=== PATIENT | female | born 1960 | race Hispanic/Latino ===

== ENCOUNTER 2023-06-11 12:18 | Observation (INO) | payer OTHER ==
--- OUTSIDE RECORDS SUMMARY | 2023-06-11 12:21 | XMS REPORT | Continuity of Care Document ---
:1960 Author Organization [facility] t Address [address] [facility] [address] [place] [id number] Care Team Providers Name Role Phone JERMAN Attending Clinician Unavailable JERMAN Admitting Clinician Unavailable Payers Payer Name Policy Type Policy Number Effective Date Expiration Date S damian MEDICARE B-TX: [id number] 2008 [employer] 00:00:00 [employer] [id number] 2016 [facility] (MEDICAID 00:00:00 HMO) Problems This patient has no known problems. Allergies, Adverse Reactions, Alerts This patient has no known allergies or adverse reactions. Medications This patient has no known medications. Procedures This patient has no known procedures. Encounters Start End Encounter Admission Attending Care Care Encounter Source Date/Time Date/Time Type Type Clinicians Facility Department ID 2022-04-26 2022-04-26 Outpatient [facility] [place] [phone] Lisa 03:03:00 03:03:00 [facility] [id number] [facility] l [facility] Results This patient has no known results.
[2023-06-11 12:40] LABS: Absolute Lymphocytes (CBC) 1.4 K/uL (0.7-4.9); Hematocrit 41.2 % (36.0-45.0); Lymphocytes % 22.3 % (15.3-44.8); MCV 89.8 fL (80-100); Platelets 181 thou/uL (152-406); RBC Red Blood Cell Count 4.58 M/uL (3.86-4.86)
[2023-06-11] MEDS ORDERED: FENTANYL CITR 100 MCG/2 ML ONE (12:41)
[2023-06-11] MEDS ORDERED: FAMOTIDINE 20 MG/2 ML VIAL IV ONE (12:41)
[2023-06-11 12:42] LABS: Protime INR 1.02
--- NOTE | 2023-06-11 12:47 | RAD REPORT ---
EXAM DESCRIPTION: CT - Head Brain Wo Cont - 06/11/2023 12:38 pm CLINICAL HISTORY: DIZZINESS Headache, drowsiness, dizziness COMPARISON: Head Brain Wo Cont dated 10/14/2016; HEAD BRAIN W O CONTRAST dated 02/28/2015 TECHNIQUE: All CT scans are performed using dose optimization technique as appropriate and may inclu de automated exposure control or mA/KV adjustment according to patient size. FINDINGS: No intracranial hemorrhage, hydrocephalus or extra-axial fluid collection.Calcified right- sided meningioma appears stable since prior imaging.No areas of brain edema or evidence of midline sh ift. The paranasal sinuses and mastoids are clear. The calvarium is intact. IMPRESSION: No acute intracranial abnormality.
[2023-06-11 13:01] LABS: Albumin 3.6 g/dL (3.4-5.0); Bilirubin Direct 0.1 mg/dL (0-0.2); Bilirubin Indirect, Calculated 0.5 mg/dL (0.2-0.8); Bilirubin Total 0.6 mg/dL (0.2-1.0); Magnesium 2.2 mg/dL (1.6-2.4); Potassium 3.1 mEq/L (3.5-5.1); Troponin High Sensitivity 7.8 pg/mL (<58.9)
[2023-06-11] MEDS ORDERED: NA CHLORIDE 0.9% 1,000 ML ONE (13:25)
[2023-06-11] MEDS ORDERED: POTASSIUM 25 MEQ EFFERV TAB ONE (13:25)
[2023-06-11] MEDS ORDERED: PROMETHAZINE INJ 25 MG/ML AMP ONE (13:47)
--- NOTE | 2023-06-11 13:54 | RAD REPORT ---
EXAM DESCRIPTION: RAD - Chest Single View - 06/11/2023 12:51 pm CLINICAL HISTORY: ABDOMINAL DISTENTION Chest pain. COMPARISON: Chest Pa And Lat (2 Views) dated 10/17/2016; Chest Single View dated 10/15/2016; Chest S anoop View dated 10/14/2016; CHEST SINGLE VIEW dated 02/28/2015 FINDINGS: Portable technique limits examination quality. The lungs are grossly clear. The heart is normal in size. No displaced fractures.Cervical hardware pl ate. IMPRESSION: No acute intrathoracic process suspected.
--- NOTE | 2023-06-11 14:11 | RAD REPORT ---
EXAM DESCRIPTION: CT - Chest Abd Pelvis Wo Con - 06/11/2023 1:53 pm CLINICAL HISTORY: Chest and abdomen pain. Chest pain;Pain;SOB COMPARISON: No comparisons TECHNIQUE: A limited noncontrast study was performed. All CT scans are performed using dose optimization technique as appropriate and may include automated exposure control or mA/KV adjustment according to patient size. FINDINGS: Mild linear atelectasis in the posterior left lung base. The lungs are otherwise clear.No pleural or pericardial effusion.No intrathoracic adenopathy.Cholecystectomy clips. The liver, spleen, pancreas, adrenal glands and kidneys are within normal limits. No bowel obstruction, free air, free fluid or abscess. Normal appendix. No pathologic lymphadenopath y in the abdomen or pelvis. No worrisome osseous finding. IMPRESSION: No acute abnormality is seen.
--- NOTE | 2023-06-11 14:29 | EDPHYS ---
Physician Documentation [facility] Name: Geeta Smith Age: 62 yrs Sex: Female : 1960 Arrival Date: 06/11/2023 Time: 12:18 Bed 2 Private MD: ED Physician Trell Crockett HPI: 06/11 12:54 This 62 yrs old Female presents to ER via EMS with complaints of Abdominal sb4 Pain. 12:54 The patient presents with abdominal pain in the epigastric area. Onset: The sb4 symptoms/episode began/occurred last night, and became worse just prior to arrival. The symptoms do not radiate. Associated signs and symptoms: Pertinent positives: chest pain, headache, nausea, palpitations, Dizziness. The symptoms are described as sharp. Modifying factors: The symptoms are alleviated by nothing, the symptoms are aggravated by alcohol. Severity of pain: in the emergency department the pain is a 10 / 10. The patient has not experienced similar symptoms in the past. The patient has not recently seen a physician. Historical: - Allergies: 12:24 IVP CONTRAST; aa5 12:24 Iodine; aa5 - PMHx: 12:24 CHF; Diabetes - NIDDM; graves disease; Hypertension; TUMOR IN BRAIN FOUND 5 YRS AGO - aa5 NO TREATMENT; Hypothyroidism; Arthritis; - Immunization history:: Adult Immunizations up to date. - Social history:: Smoking status: unknown. ROS: 12:54 Eyes: Negative for injury, pain, redness, and discharge, ENT: Negative for injury, sb4 pain, and discharge, Respiratory: Negative for shortness of breath, cough, wheezing, and pleuritic chest pain, Skin: Negative for injury, rash, and discoloration. 12:54 Constitutional: Negative for fever, chills, and weight loss. 12:54 Cardiovascular: Positive for chest pain. 12:54 Cardiovascular: Positive for palpitations. 12:54 Abdomen/GI: Positive for abdominal pain, nausea. 12:54 MS/extremity: Positive for pain, of the left leg. 12:54 Neuro: Positive for dizziness, headache. 12:54 All other systems are negative. Exam: 12:54 Head/Face: Normocephalic, atraumatic. Eyes: Extra-ocular motions intact. Periorbital sb4 areas with no swelling, redness, or edema. ENT: Mucous membranes moist. Cardiovascular: Regular rate and rhythm with a normal S1 and S2. Respiratory: Lungs have equal breath sounds bilaterally, clear to auscultation and percussion. No rales, rhonchi or wheezes noted. No increased work of breathing, no retractions or nasal flaring. Abdomen/GI: Soft, non-tender, no distension. Skin: Warm, dry with normal turgor. Normal color with no rashes, no lesions, and no evidence of cellulitis. MS/ Extremity: Pulses equal, no cyanosis. Neurovascular intact. Full, normal range of motion. Neuro: Awake and alert, GCS 15, oriented to person, place, time, and situation. Cranial nerves II-XII grossly intact. Motor strength 5/5 in all extremities. Sensory grossly intact. Cerebellar exam normal. Normal gait. 12:54 Constitutional: The patient appears alert, awake, uncomfortable. Vital Signs: 12:21 BP 159 / 68; Pulse 63; Resp 20 S; Temp 98(TE); Pulse Ox 99% on R/A; aa5 13:15 BP 167 / 84; Pulse 64; Resp 14 S; Pulse Ox 94% on R/A; aa5 14:00 BP 158 / 100; Pulse 68; Resp 16 S; Pulse Ox 100% on 2 lpm NC; aa5 15:00 BP 171 / 83; Pulse 57; Resp 18 S; Pulse Ox 100% on 2 lpm NC; aa5 15:31 BP 158 / 79; Pulse 58; Resp 16 S; Temp 97.9(TE); Pulse Ox 99% on 2 lpm NC; aa5 16:15 BP 130 / 72; Pulse 62; Resp 15; Pulse Ox 98% on 2 lpm NC; hb 19:15 BP 168 / 98; Pulse 56; Resp 15; Pulse Ox 100% ; vc1 20:41 BP 144 / 86; Pulse 65; Resp 16; Temp 98; Pulse Ox 100% on R/A; rv [place] Coma Score: 20:41 Eye Response: spontaneous(4). Motor Response: obeys commands(6). Verbal Response: rv oriented(5). Total: 15. MDM: 12:21 Patient medically screened. amy 12:54 Differential diagnosis: AAA, acute coronary syndrome, gastritis, myocardia ischemia or sb4 infarction, non-specific abd pain, pancreatitis, Peptic Ulcer Disease. 14:27 Data reviewed: vital signs, nurses notes, lab test result(s), EKG, radiologic studies, sb4 and as a result, I will admit patient. Consideration of Admission/Observation Patient was admitted/placed on observation. Management of patient was discussed with the following: Hospitalist: DANIELLE Hanson. Historians other than the Patient: Daughter/Son: son. Care significantly affected by the following chronic conditions: Diabetes, Hypertension, Congestive Heart Failure. Scoring Tools HEART Score: History: ECG: Age: Risk Factors: > or = 3 Risk factors for atherosclerotic disease (2), Troponin: Total Score = 5. Counseling: I had a detailed discussion with the patient and/or guardian regarding the historical points, exam findings, and any diagnostic results supporting the discharge/admit diagnosis, the presence of at least one elevated blood pressure reading (>120/80) during this emergency department visit, lab results, radiology results, the need for further work-up and treatment in the hospital. 06/11 12:25 Order name: Basic Metabolic Panel; Complete Time: 13:06 amy 06/11 12:25 Order name: CBC with Diff; Complete Time: 12:46 amy 06/11 12:25 Order name: LFT's; Complete Time: 13:06 amy 06/11 12:25 Order name: Magnesium; Complete Time: 13:06 amy 06/11 12:25 Order name: NT PRO-BNP; Complete Time: 13:06 amy 06/11 12:25 Order name: PT-INR; Complete Time: 12:43 amy 06/11 12:25 Order name: Troponin HS; Complete Time: 13:06 amy 06/11 12:25 Order name: Lipase; Complete Time: 13:06 amy 06/11 12:25 Order name: Urinalysis w/ reflexes; Complete Time: 16:00 amy 06/11 14:25 Order name: SARS RAPID; Complete Time: 15:32 sb4 06/11 14:25 Order name: Flu; Complete Time: 15:32 sb4 06/11 16:07 Order name: Troponin High Sensitivity EDMS 06/11 16:07 Order name: Troponin High Sensitivity EDMS 06/11 16:07 Order name: Troponin High Sensitivity EDMS 06/11 16:12 Order name: Magnesium EDMS 06/11 16:12 Order name: Phosphorus EDMS 06/11 16:12 Order name: T4 Free EDMS 06/11 16:12 Order name: Thyroid Stimulating Hormone [facility] 06/11 16:12 Order name: Urinalysis w/ reflexes [facility] 06/11 16:12 Order name: Basic Metabolic Panel [facility] 06/11 16:12 Order name: Basic Metabolic Panel [facility] 06/11 16:12 Order name: CBC with Automated Diff [facility] 06/11 16:12 Order name: CBC with Automated Diff [facility] 06/11 16:12 Order name: Lipid Profile [facility] 06/11 16:12 Order name: Lipid Profile [facility] 06/11 12:25 Order name: XRAY Chest (1 view); Complete Time: 13:55 [facility] 06/11 12:27 Order name: Head Brain Wo Cont CT; Complete Time: 12:49 [facility] 06/11 13:28 Order name: CT Chest Abdomen Pelvis W/O Contrast; Complete Time: 14:13 4 06/11 14:30 Order name: Extremity Venous Uni Ltd US; Complete Time: 15:32 [facility] 06/11 16:07 Order name: Echo with Doppler [facility] 06/11 12:25 Order name: EKG; Complete Time: 12:26 [facility] 06/11 16:12 Order name: 60g Consistent Carbohydrate (ADA 1800/1999) [facility] 06/11 12:25 Order name: Cardiac monitoring; Complete Time: 12:26 [facility] 06/11 12:25 Order name: EKG - Nurse/Tech; Complete Time: 12:35 [facility] 06/11 12:25 Order name: IV Saline Lock; Complete Time: 12:35 [facility] 06/11 12:25 Order name: Labs collected and sent; Complete Time: 12:35 [facility] 06/11 12:25 Order name: O2 Per Protocol; Complete Time: 12:26 [facility] 06/11 12:25 Order name: O2 Sat Monitoring; Complete Time: 12:26 [facility] EC:33 Rate is 61 beats/min. Rhythm is regular, Normal Sinus Rhythm. FL interval is normal at sb4 136 msec. QRS interval is normal at 80 msec. QT interval is normal at [address] changes noted. Clinical impression: Abnormal EKG without significant change. Interpreted by me. Reviewed by me. Administered Medications: 12:28 CANCELLED (Duplicate Order): Ondansetron IVP 4 mg IVP once; over 2 minutes sb4 12:32 Drug: fentaNYL (PF) IVP 50 mcg Route: IVP; Site: left hand; aa5 12:40 Follow up: Response: No adverse reaction aa5 12:32 Drug: Famotidine IVP 20 mg Route: IVP; Site: left hand; aa5 12:40 Follow up: Response: No adverse reaction aa5 13:25 Drug: NS 0.9% IV 1000 ml Route: IV; Rate: 1 bolus; Site: left hand; aa5 13:40 Drug: Promethazine IVP 12.5 mg Route: IVP; Site: left hand; nj1 14:00 Follow up: Response: No adverse reaction aa5 14:40 Drug: morphine IVP or IV 4 mg Route: IVP; Infused Over: 4 mins; Site: left hand; hb 15:00 Follow up: Response: No adverse reaction aa5 14:40 Drug: Aspirin PO Chewable Tablet 324 mg Route: PO; hb 15:00 Follow up: Response: No adverse reaction aa5 15:40 Drug: Potassium PO Effervescent Tablet 50 mEq Route: PO; aa5 Disposition Summary: 06/11/23 14:29 Hospitalization Ordered Hospitalization Status: Observation sb4 Provider: Kevin Matos sb4 Location: Telemetry/MedSurg (observation) sb4 Condition: Fair sb4 Problem: new sb4 Symptoms: are unchanged sb4 Bed/Room Type: Standard 4 Room Assignment: 431(06/11/23 18:25) Diagnosis - Chest pain, unspecified sb4 Forms: - Medication Reconciliation Form sb4 - SBAR form sb4 - Leadership Thank You Letter sb4 Signatures: Dispatcher [employer] Anne Bah RN RN dw Anderson, Corey, MD MD cha Calderon, Audri, RN RN aa5 Delaney Bal RN RN Ernesto Hogan RN RN rv Colette Jasso RN RN vc1 Polly Breen PA-C PAKiki sb4 Saskia George RN RN nj1 Corrections: (The following items were deleted from the chart) 12:28 12:25 Ondansetron IVP 4 mg IVP once; over 2 minutes ordered. amy sb4 12:28 12:27 Ondansetron IVP 4 mg IVP once; over 2 minutes ordered. sb4 sb4 18:25 14:29 sb4 dw
--- NOTE | 2023-06-11 14:29 | ER ---
Nurse's Notes [facility] Name: Geeta Smith Age: 62 yrs Sex: Female : 1960 Arrival Date: 06/11/2023 Time: 12:18 Bed 2 Private MD: Diagnosis: Chest pain, unspecified Presentation: 06/11 12:21 Chief complaint: EMS states: called 911 for abdominal pain and nausea. Pt also c/o left aa5 leg pain, dizziness, headache, and heart palpitations. 12:21 Coronavirus screen: headache, nausea. Ebola Screen: Patient denies travel to an aa5 Ebola-affected area in the 21 days before illness onset. Risk Assessment: Do you want to hurt yourself or someone else? Patient reports no desire to harm self or others. Onset of symptoms was June 10, 2023. 12:21 Acuity: BRUCE 3 aa5 12:21 Method Of Arrival: EMS: [facility] aa5 12:21 Care prior to arrival: Medication(s) given: zofran 4 mg, IV initiated. aa5 12:21 Initial Sepsis Screen: Does the patient meet any 2 criteria? No. Patient's initial aa5 sepsis screen is negative. Does the patient have a suspected source of infection? No. Patient's initial sepsis screen is negative. 12:21 Care prior to arrival: IV initiated. 20 GA, in the left hand. 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 - Social history:: Smoking status: unknown. Screenin:25 [facility] ED Fall Risk Assessment (Adult) History of falling in the last 3 months, aa5 including since admission No falls in past 3 months (0 pts) Confusion or Disorientation No (0 pts) Intoxicated or Sedated No (0 pts) Impaired Gait Yes (1 pt) Mobility Assist Device Used No (0 pt) Altered Elimination No (0 pt) Score/Fall Risk Level 0 - 2 = Low Risk Oriented to surroundings, Maintained a safe environment, Educated pt \T\ family on fall prevention, incl call for assistance when getting out of bed. Abuse screen: Denies threats or abuse. Nutritional screening: No deficits noted. Tuberculosis screening: No symptoms or risk factors identified. Assessment: 12:21 General: Appears uncomfortable, Behavior is calm, cooperative. Pain: Complains of pain aa5 in epigastric area, left leg, head, and chest Quality of pain is described as sharp, Pain began 1 day ago. Is continuous. 12:21 Neuro: Level of Consciousness is awake, alert, obeys commands, Oriented to person, aa5 place, time, situation, Belt Tender are weak bilaterally Moves all extremities. Weakness in bilateral arm(s) leg(s) Speech is normal, Facial symmetry appears normal, Pupils are PERRLA, Reports dizziness, headache Denies paresthesias numbness. Cardiovascular: Reports chest pain, palpitations, Heart tones S1 S2 present Rhythm is regular. Respiratory: Airway is patent Respiratory effort is even, unlabored, Respiratory pattern is regular, symmetrical. GI: Abdomen is round non-distended, Bowel sounds present X 4 quads. Abd is soft and non tender X 4 quads. Reports upper abdominal pain, nausea, Patient currently denies vomiting. : No signs and/or symptoms were reported regarding the genitourinary system. EENT: No signs and/or symptoms were reported regarding the EENT system. Derm: Skin is pink, warm \T\ dry. Musculoskeletal: Range of motion: intact in all extremities. 13:15 Reassessment: Patient is alert, oriented x 3, equal unlabored respirations, skin aa5 warm/dry/pink. 13:15 Reassessment: Patient states symptoms have not improved. Pt vomited approximately aa5 200mls, provider notified. . 14:00 Reassessment: Patient is alert, oriented x 3, equal unlabored respirations, skin aa5 warm/dry/pink. 15:10 Reassessment: Pt assisted to restroom via wheelchair, pt voided without difficulties. aa5 Pt placed back in bed. . 15:38 Reassessment: Patient is alert, oriented x 3, equal unlabored respirations, skin aa5 warm/dry/pink. Awaiting admission orders for room assignment. Pt aware of wait time. . 15:38 Reassessment: Patient states feeling better. Pt reports pain, dizziness, and nausea aa5 have improved. . 16:16 Reassessment: Patient appears in no apparent distress at this time. No changes from hb previously documented assessment. Patient and/or family updated on plan of care and expected duration. Pain level reassessed. 17:30 Reassessment: Patient is alert, oriented x 3, equal unlabored respirations, skin aa5 warm/dry/pink. Awaiting room assigment . 19:15 Reassessment: Patient and/or family updated on plan of care and expected duration. Pain vc1 level reassessed. Patient is alert, oriented x 3, equal unlabored respirations, skin warm/dry/pink. Patient states feeling better. Patient states symptoms have improved. 19:18 Reassessment: Attempted to call to give report, no answer. vc1 19:30 Reassessment: Attempted to call report, no answer. vc1 19:32 Reassessment: Attempted to call report, no answer. vc1 19:41 General: attempted to call report, told they would call back. as6 20:02 Reassessment: Attempted to call report, placed on hold for 8 minutes. vc1 20:13 Reassessment: Attempted to call report, no answer. vc1 20:33 General: attempted to call report, no answer. as6 Vital Signs: 12:21 BP 159 / 68; Pulse 63; Resp 20 S; Temp 98(TE); Pulse Ox 99% on R/A; aa5 13:15 BP 167 / 84; Pulse 64; Resp 14 S; Pulse Ox 94% on R/A; aa5 14:00 BP 158 / 100; Pulse 68; Resp 16 S; Pulse Ox 100% on 2 lpm NC; aa5 15:00 BP 171 / 83; Pulse 57; Resp 18 S; Pulse Ox 100% on 2 lpm NC; aa5 15:31 BP 158 / 79; Pulse 58; Resp 16 S; Temp 97.9(TE); Pulse Ox 99% on 2 lpm NC; aa5 16:15 BP 130 / 72; Pulse 62; Resp 15; Pulse Ox 98% on 2 lpm NC; hb 19:15 BP 168 / 98; Pulse 56; Resp 15; Pulse Ox 100% ; vc1 20:41 BP 144 / 86; Pulse 65; Resp 16; Temp 98; Pulse Ox 100% on R/A; rv [place] Coma Score: 20:41 Eye Response: spontaneous(4). Motor Response: obeys commands(6). Verbal Response: rv oriented(5). Total: 15. ED Course: 12:21 Patient arrived in ED. iw 12:21 Trell Crockett MD is Attending Physician. amy 12:21 Arm band placed on. aa5 12:21 Patient has correct armband on for positive identification. Placed in gown. Bed in low aa5 position. Call light in reach. Side rails up X2. Client placed on continuous cardiac and pulse oximetry monitoring. NIBP monitoring applied. 12:23 Rosalia Ramirez, BEATRICE is Primary Nurse. aa5 12:24 Triage completed. aa5 12:27 Polly Breen PA-C is PHCP. sb4 12:34 Maintain EMS IV. Dressing intact. Good blood return noted. Site clean \T\ dry. Gauge \T\ hb site: 20g L HAND. 12:35 Lipase Sent. hb 12:35 Troponin HS Sent. hb 12:35 PT-INR Sent. hb 12:35 NT PRO-BNP Sent. hb 12:35 Magnesium Sent. hb 12:35 LFT's Sent. hb 12:35 CBC with Diff Sent. hb 12:35 Basic Metabolic Panel Sent. hb 12:40 Head Brain Wo Cont CT In Process Unspecified. EDMS 12:53 XRAY Chest (1 view) In Process Unspecified. EDMS 13:54 CT Chest Abdomen Pelvis W/O Contrast In Process Unspecified. EDMS 14:29 Kevin Matos is Hospitalizing Provider. sb4 14:40 SARS RAPID Sent. hb 14:40 Flu Sent. hb 15:10 Extremity Venous Uni Ltd US In Process Unspecified. EDMS 19:00 Report given to BEATRICE Feng and BEATRICE Alvarenga. aa5 19:20 No provider procedures requiring assistance completed. Patient admitted, IV remains in vc1 place. 20:41 Provided Education on: CHEST PAIN. rv Administered Medications: 12:28 CANCELLED (Duplicate Order): Ondansetron IVP 4 mg IVP once; over 2 minutes sb4 12:32 Drug: fentaNYL (PF) IVP 50 mcg Route: IVP; Site: left hand; aa5 12:40 Follow up: Response: No adverse reaction aa5 12:32 Drug: Famotidine IVP 20 mg Route: IVP; Site: left hand; aa5 12:40 Follow up: Response: No adverse reaction aa5 13:25 Drug: NS 0.9% IV 1000 ml Route: IV; Rate: 1 bolus; Site: left hand; aa5 13:40 Drug: Promethazine IVP 12.5 mg Route: IVP; Site: left hand; nj1 14:00 Follow up: Response: No adverse reaction aa5 14:40 Drug: morphine IVP or IV 4 mg Route: IVP; Infused Over: 4 mins; Site: left hand; hb 15:00 Follow up: Response: No adverse reaction aa5 14:40 Drug: Aspirin PO Chewable Tablet 324 mg Route: PO; hb 15:00 Follow up: Response: No adverse reaction aa5 15:40 Drug: Potassium PO Effervescent Tablet 50 mEq Route: PO; aa5 Medication: 19:20 VIS not applicable for this client. vc1 Outcome: 14:29 Decision to Hospitalize by Provider. sb4 20:41 Admitted to Tele accompanied by tech, via wheelchair, room 431, with chart, Report rv called to FEDERICO BARRON 20:41 Condition: stable 20:41 Instructed on the need for admit. 20:42 Patient left the ED. rv Signatures: Dispatcher [employer] EDMS Trell Crockett MD MD cha Williams, Irene, RN BEATRICE iw Rosalia Ramirez RN RN aa5 Delaney Bal RN BEATRICE Ernesto Meade RN BEATRICE rv Reginald Chairez RN RN as6 Colette Jasso RN RN vc1 Polly Breen PA-C PA-C sb4 Saskia George RN RN nj1 Corrections: (The following items were deleted from the chart) 13:13 12:21 BP 159 / 68; Pulse 63bpm; Resp 20bpm; Spontaneous; Pulse Ox 99% RA; aa5 aa5
[2023-06-11] MEDS ORDERED: ASPIRIN 81 MG CHEWABLE TABLET ONE (14:42)
[2023-06-11] MEDS ORDERED: MORPHINE 4 MG/ML SYR ONE (14:42)
[2023-06-11 15:13] LABS: SARS-CoV-2 Antigen Rapid Res Negative (Negative)
--- NOTE | 2023-06-11 15:17 | RAD REPORT ---
EXAM DESCRIPTION: US - Extremity Venous Uni Ltd - 06/11/2023 3:08 pm CLINICAL HISTORY: PAIN Leg swelling and edema. COMPARISON: No comparisons FINDINGS: Left lower extremity venous system was interrogated with Doppler technique. Normal flow, c ompressibility and augmentation was noted. There is no DVT present. IMPRESSION: No evidence of left lower extremity deep venous thrombosis.
[2023-06-11 15:58] LABS: Specific Gravity 1.006 (1.005-1.030); Urine Bacteria None Seen /HPF (<20); Urine Bilirubin NEGATIVE (Negative); Urine Blood Negative (Negative); Urine Clarity Turbid (Clear); Urine Color Colorless (Yellow); Urine Glucose NEGATIVE (Negative); Urine Protein NEGATIVE (Negative); Urine RBC <5 /HPF (None Seen); Urine Urobilinogen Normal (Normal)
[2023-06-11] MEDS ORDERED: ACETAMINOPHEN 325 MG TABLET PO PRN (16:02)
[2023-06-11] MEDS ORDERED: ONDANSETRON 4 MG/2 ML VIAL IV PRN (16:10)
--- NOTE | 2023-06-11 16:12 | P.HP ---
Certification for Inpatient Patient admitted to: Observation With expected LOS: <2 Midnights Patient will require the following post-hospital care: None Practitioner: I am a practitioner with admitting privileges, knowledge of patient current condition, hospital course, and medical plan of care. Services: Services provided to patient in accordance with Admission requirements found in Title 42 Section 412.3 of the Code of Federal Regulations Patient History Date of Service: 06/11/23 Reason for admission: Epigastric pain. History of Present Illness: Patient is a 62-year-old female with a past medical history significant for DM 2, hypertension, hypothyroidism, osteoarthritis who presents with complaint of epigastric pain that has been ongoing for the past 2 days. Patient rated pain as 10/10 in severity and described pain as sharp in quality. Patient reported that when she got to the ER if she developed substernal chest pain rated 6/10 in severity and described as pressure in quality. Patient also complains of left lower extremity pain. Patient reports associated signs and symptoms of dizziness, nausea, vomiting, headache, palpitations, shortness of breath, diaphoresis and tremors. Patient denies any other signs and symptoms. Symptoms are aggravated or relieved by nothing. Patient was brought to the hospital for medical evaluation.- Allergies iodine Allergy (Verified 05/05/12 10:05) Rash IODINE; IODINE CONTAINING Allergy (Uncoded 03/02/15 02:33) Hives Home Medications: Levothyroxine Sodium [Unithroid] 150 mcg PO DAILY 03/01/15 Metformin HCl [Glucophage*] 500 mg PO BID 03/01/15 Acetaminophen 500 mg PO Q6HR PRN #30 tablet 10/15/16 Pantoprazole [Protonix Tab*] 40 mg PO DAILY #30 tab 10/17/16 carvediloL [Coreg*] 12.5 mg PO BID 6AM 6PM #60 tab 10/17/16 - Past Medical/Surgical History Diabetic: Yes -: NIDDM -: Hypertension -: hypothyroidism -: bronchitis -: Graves Disease 1993 -: brain tumor 2012 -: hysterectomy -: cholecysectomy -: disc surgery - Social History Smoking Status: Never smoker Alcohol use: No CD- Drugs: No Caffeine use: Yes Place of Residence: Home Review of Systems General: Chills, Sweats Eyes: Unremarkable ENT: Unremarkable Respiratory: Shortness of Breath Cardiovascular: Chest Pain, Palpitations Gastrointestinal: Nausea, Vomiting, Abdominal Pain Genitourinary: Unremarkable Musculoskeletal: Leg Pain Integumentary: Unremarkable Neurological: Other (Dizziness, NEGRON) Lymphatics: Unremarkable Physical Examination - Physical Exam General: Alert, In no apparent distress, Oriented x3, Cooperative HEENT: Atraumatic, PERRLA, Mucous membr. moist/pink, EOMI, Sclerae nonicteric Neck: Supple, 2+ carotid pulse no bruit, No LAD, Without JVD or thyroid abnormality Respiratory: Clear to auscultation bilaterally, Normal air movement Cardiovascular: No edema, Regular rate/rhythm, Normal S1 S2 Capillary refill: <2 Seconds Gastrointestinal: Normal bowel sounds, Tenderness Musculoskeletal: No clubbing, No swelling, No tenderness Integumentary: No rashes, No significant lesion Neurological: Normal speech, Normal tone, Normal affect Lymphatics: No axilla or inguinal lymphadenopathy - Studies Laboratory Data (last 24 hrs) 06/11/23 06/11/23 06/11/23 12:32 12:32 12:32 WBC 6.40 Hgb 14.0 Hct 41.2 Plt Count 181 PT 11.2 INR 1.02 Sodium 138 Potassium 3.1 L BUN 11 Creatinine 1.12 H Glucose 217 H Magnesium 2.2 Total Bilirubin 0.6 AST 28 ALT 27 Alkaline Phosphatase 118 H Lipase 37 Microbiology Data (last 24 hrs): 06/11/23 14:38 Nasopharnyx Influenza Type A Antigen Screen - Final 06/11/23 14:38 Nasopharnyx Influenza Type B Antigen Screen - Final Assessment and Plan - Plan -- Chest pain. We will trend serial troponins--negative so far. Echocardiogram pending to assess cardiac structures and function. Cardiology consulted. Will await further recommendations. -- Abdominal pain. CT abdomen does not indicate any acute intra-abdominal abnormality. Will manage pain with current pain medication regimen. --GERD. Continue Protonix. --Hypothyroidism. Continue Synthroid. --Hypertension. Poorly controlled. Continue home medications and hydralazine as needed. -- DM2. BS monitoring with sliding scale insulin. --Left leg pain. Doppler ultrasound does not indicate any DVT. Will manage pain with current pain medication regimen. -- Headache. Tylenol as needed. --Hypokalemia. Replete as needed. -- Nausea and vomiting. Antiemetics on board. Continue supportive care. --DVT prophylaxis with Lovenox subQ. Discharge Plan: Home Plan to discharge in: 48 Hours - Advance Directives Does patient have a Living Will: No Does patient have a Durable POA for Healthcare: No - Code Status/Comfort Care Code Status Assessed: Yes Physician Review: Patient Assessed, Agree with Above Assessment and Plan Critical Care: No
[2023-06-11] MEDS: INSULIN -REGULAR HUMAN 50 UNIT/0.5 ML ML SQ SCH ×2 (16:30→21:00)
[2023-06-11] MEDS: ENOXAPARIN 40 MG/0.4 ML SQ SCH (17:00)
[2023-06-11] MEDS ORDERED: HYDRALAZINE HCL 20 MG/ML VIAL IV PRN (21:06)
[2023-06-11 21:41] LABS: Magnesium 2.4 mg/dL (1.6-2.4); Phosphorus 2.8 mg/dL (2.5-4.9); Troponin High Sensitivity 8.8 pg/mL (<58.9)
[2023-06-11 21:42] LABS: Thyroid Stimulating Hormone 36.2 uIU/mL (0.358-3.740)
[2023-06-11 22:07] VITALS: BMI 4367.7
[2023-06-11] MEDS: HYDROCODONE/APAP 5/325 MG TAB PO PRN (22:19)
--- NOTE | 2023-06-11 23:24 | CON ---
Date of Consultation: 06/11/2023 Reason For Consultation: Chest pain. History Of Present Illness: 62-year-old female, history of diabetes and hypertension, presented with chest pain. It is in the retrosternum, in the lower part of the chest, that radiates to the back in to the shoulder, not related to exertion, but she had an episode earlier and then that eased up and t hen she had another episode of significant pain that prompted her to come to the emergency room. She has seen a integrated program teacher and recommended stress test, but she has never done it before. Past Medical History: As outlined above in the HPI. Medications: Refer to reconciliation sheet for detailed list. Allergies: IODINE. Family History: No premature coronary artery disease or cancer. Social History: She does not smoke or drink. Does not use any drugs. Review of Systems: All systems reviewed are negative except for mentioned in HPI. Physical Examination: Vital Signs: Reviewed. Head and Neck: Pupils are equal, reactive to light. Intact eye movements. No JVD. No cervical lym phadenopathy. Neck is supple. Thyroid is not enlarged. Lungs: Clear to auscultation bilaterally. No rhonchi, wheezing, or crackles. No accessory muscle u se. Heart: Regular rate and rhythm. No extra sounds. Abdomen: Soft, nontender. Bowel sounds positive. No organomegaly. No masses or hernia. No rigidi ty or rebound. Extremities: No edema, clubbing, cyanosis. Intact pulses. Skin: No rash noted. Neurologic: Alert, awake, oriented x3. No acute focal deficits appreciated. Investigations: Cardiac enzymes, the first set is negative. BUN 11, creatinine 1.1, and hemoglobin is 14. Assessment/recommendations: 1.Chest pain. It is atypical. First set of cardiac enzymes negative, to trend to 2 more sets. Con tinue aspirin and plan for exercise nuclear stress test tomorrow and then echocardiogram. 2.Hypertension. Blood pressure is controlled. Continue home medication. 3.Diabetes. Check hemoglobin A1c and I recommend start her on Lipitor 40 mg at bedtime. SR/MODL Voice ID: [id number] Report ID: [id number]
[2023-06-12 03:27] LABS: Hematocrit 37.8 % (36.0-45.0); Lymphocytes % 29.5 % (15.3-44.8); MCV 88.6 fL (80-100); MPV 9.3 fL (7.6-11.3); Platelets 180 thou/uL (152-406); RBC Red Blood Cell Count 4.27 M/uL (3.86-4.86)
[2023-06-12 04:07] LABS: Potassium 3.4 mEq/L (3.5-5.1)
[2023-06-12] MEDS: INSULIN -REGULAR HUMAN 50 UNIT/0.5 ML ML SQ SCH ×4 (07:30→21:00)
[2023-06-12] MEDS ORDERED: REGADENOSON 0.4 MG/5 ML SYR IV ONE (07:44)
[2023-06-12] MEDS ORDERED: PNEUMOCOCCAL VACCINE 0.5 ML IMVAC ONE (08:00)
[2023-06-12] MEDS: ASPIRIN 81 MG CHEWABLE TABLET PO SCH (09:00)
[2023-06-12] MEDS: ENOXAPARIN 40 MG/0.4 ML SQ SCH (09:00)
[2023-06-12] MEDS: NITROGLYCERIN 0.4 MG/TAB SL PRN ×2 (12:18→12:26)
[2023-06-12] MEDS ORDERED: NITROGLYCERIN 0.4 MG/TAB SL ONE (12:26)
--- NOTE | 2023-06-12 12:40 | EKG ---
Test Date: 2023-06-11 Test Time: 12:29:00 Block Cutter: JOVANY MEASUREMENT RESULTS: Intervals: Rate: 61 WV: 136 QRSD: 80 QT: 438 QTc: [address] [place]: P: 60 WV: 136 QRS: 57 T: -69 INTERPRETIVE STATEMENTS: Normal sinus rhythm ST & T wave abnormality, consider inferior ischemia ST & T wave abnormality, consider anterolateral ischemia Abnormal ECG Compared to ECG 10/14/2016 21:45:40 Prolonged QT interval no longer present ST (T wave) deviation still present Possible ischemia still present Electronically Signed On 06-12-23 12:37:17 CDT by Aron Shepard
--- NOTE | 2023-06-12 13:29 | ECHO ---
HEIGHT: 5 ft 2 in WEIGHT: 168 lb 0 oz DATE OF STUDY: 06/12/[address]: Yuki Byers 2-DIMENSIONAL: YES M.MODE: YES DOPPLER: YES COLOR FLOW: YES TDS: PORTABLE: YES DEFINITY: BUBBLE STUDY: DIAGNOSIS: CHEST PAIN CARDIAC HISTORY: CATHERIZATION: SURGERY: PROSTHETIC VALVE: PACEMAKER: MEASUREMENTS (cm) DIASTOLIC (NORMALS) SYSTOLIC (NORMALS) IVSd 1.0 (0.6-1.2) LA Diam 3.5 (1.9-4.0) LVEF 52% LVIDd 3.5 (3.5-5.7) LVIDs 2.6 (2.0-3.5) %FS 26% LVPWd 1.2 (0.6-1.2) Ao Diam 2.6 (2.0-3.7) 2 DIMENSIONAL ASSESSMENT: RIGHT ATRIUM: NORMAL LEFT ATRIUM: NORMAL RIGHT VENTRICLE: NORMAL LEFT VENTRICLE: NORMAL TRICUSPID VALVE: MILD TRICUSPID REGURGITAITON MITRAL VALVE: MILD MITRAL REGURGITATION PULMONIC VALVE: NORMAL AORTIC VALVE: NORMAL PERICARDIAL EFFUSION: NONE AORTIC ROOT: NORMAL LEFT VENTRICULAR WALL MOTION: NORMAL DOPPLER/COLOR FLOW: SEE BELOW COMMENTS: 1. NORMAL LEFT VENTRICULAR EJECTION FRACTION 55-60% 2. NORMAL WALL MOTION 3. DIASTOLIC DYSFUNCTION 4. MILD TRICUSPID REGURGITATION 5. MILD MITRAL REGURGITATION TECHNOLOGIST: DELBERT WEATEHRS
--- NOTE | 2023-06-12 13:44 | TREADPHA ---
DX: CHEST PAIN Date of Study: 06/12/2023 Ht: 5' 2 " Wt: 168 lb 0 oz Consulting Physician: LINDA MEDICATIONS: TYLENOL, NORCO, ASPIRIN, LOVENOX, APRESOLINE, NOVOLIN-R, ZOFRAN HISTORY: 62 YEAR OLD WITH COMPLAINTS OF CHEST PAIN. HISTORY OF HYPERTENSION, DIABETES MELLITUS TYPE II, HYPERLIPIDEMIA, HYPOTHYROID, CONGESTIVE HEART FAILURE, DENIES SMOKING, ALCOHOL USE, DRUG USE, OR PREVIOUS HEART SURGERIES. PHYSICIAL EXAMINATION: RESTING B.P.: 167/79 RESTING H.R.: 52 RESTING EKG: NORMAL SINUS RHYTHM WITH INFERIOR ST DEPRESSION PROTOCOL: PHARMACOLOGIC EXERCISE TIME: 3:30 B.P. AT [place] STRESS: 137/69 IMPRESSION: LEXISCAN INJECTED, CARDIOLITE GIVEN PER PROTOCOL, SEE NUCLEAR MEDICINE REPORT. DENIES SHORTNESS OF BREATH. NO SUPRAVENTRICULAR TACHYCARDIA, VENTRICULAR TACHYCARDIA, PREMATURE VENTRICULAR COMPLEXES, PREMATURE ATRIAL COMPLEXES NOTED. IN RECOVERY PATIENT COMPLAINTS OF SEVEN OUT OF TEN CHEST PAIN RADIATING TO RIGHT JAW. PATIENT PLACED ON TWO LITERS NASAL CANNULA, TELEPHONE ORDER FOR SUBLINGUAL NITRO RECEIVED BY DR. MCKEON. NO ELECTROCARDIOGRAM CHANGES WITH LEXISCAN.
--- NOTE | 2023-06-12 14:13 | RAD REPORT ---
EXAM DESCRIPTION: NM - Rest Stress Cardiac Imaging - 06/12/2023 1:52 pm CLINICAL HISTORY: Chest pain. COMPARISON: 2014 TECHNIQUE: The patient was administered 10.6 mCi of Tc 99m Sestamibi prior to resting SPECT imaging of the heart. The patient was then administered 30.7 mCi of Tc 99m Sestamibi following exercise or ph armacologic stress. Multiplanar SPECT images were reviewed. FINDINGS: Small area of diminished radiotracer activity involves the anterior left ventricle myocard ium on stress sequences. This area demonstrates normal radiotracer activity on rest images. The left ventricular ejection fraction equals 58% IMPRESSION: Small apparent reversible perfusion defect involving the anterior left ventricular myoca rdium may indicate stress-induced ischemia
[2023-06-12] MEDS: HYDROCODONE/APAP 5/325 MG TAB PO PRN (15:31)
--- NOTE | 2023-06-12 18:57 | PN ---
Date of Progress Note: 06/12/2023 Subjective: Seen by bedside. She continues to complain of pain in the lower sternum that is constan t. She walked in today for a stress test and she was having pain. Did the stress test and she left with the same pain. Does not respond to nitroglycerin. No nausea, vomiting, or diarrhea. No dysuri a, polyuria, or urinary urgency. All other systems were reviewed, they were negative. Objective: Vital Signs: Reviewed. Head and Neck: Pupils are equal, reactive to light. Intact eye movements. No JVD. No cervical lym phadenopathy. Neck is supple. Thyroid is not enlarged. Lungs: Clear to auscultation bilaterally. No rhonchi, wheezing, or crackles. No accessory muscle u se. Heart: Irregular. No extra sounds. Abdomen: Soft, nontender. Bowel sounds positive. No organomegaly. No masses or hernia. No rigidi ty or rebound. Extremities: No edema, clubbing, or cyanosis. Intact pulses. Skin: No rash. No nodule. Neurologic: Alert, awake, oriented x3. No acute focal deficits appreciated. Investigations: BUN 11, creatinine 0.84. Cardiac enzymes x3 are negative. Hemoglobin is 13.3, and a Lexiscan nuclear stress test showed small reversible perfusion defect of the anterior wall, and on echo totally normal ejection fraction. Normal wall motion. Assessment And Recommendations: 1.Chest pain. Cardiac enzymes are negative. Myocardial infarction was ruled out. Stress test show ed a very small reversible ischemia. I will plan for coronary angiogram tomorrow to evaluate her cor onary anatomy especially the fact that she keeps complaining of chest pain and further plan according ly. 2.Hypertension. Blood pressure is elevated. Recommend to start a lisinopril 10 mg daily and adjust further as blood pressure tolerates. SR/MODL Voice ID: [id number] Report ID: [id number]
--- NOTE | 2023-06-12 19:32 | P.PN ---
Subjective Date of Service: 06/12/23 Chief Complaint: Epigastric pain. Patient reports experiencing intermittent chest pain today. Physical Examination - Vital Signs Temperature: 96.9 F Blood Pressure: 147/77 Pulse: 63 Respirations: 18 Pulse Ox (%): 96 - Studies Microbiology Data (last 24 hrs): 06/11/23 14:38 Nasopharnyx Influenza Type A Antigen Screen - Final 06/11/23 14:38 Nasopharnyx Influenza Type B Antigen Screen - Final Assessment And Plan - Plan Physical Exam General: Alert, In no apparent distress, Oriented x3. Respiratory: Clear to auscultation bilaterally, Normal air movement Cardiovascular: No edema, Regular rate/rhythm, Normal S1 S2 Gastrointestinal: Normal bowel sounds, Tenderness Musculoskeletal: No clubbing, No swelling, No tenderness Integumentary: No rashes, No significant lesion Neurological: Normal speech, Normal tone, Normal affect Diagnosis Chest pain GERD Hypertension Hypothyroidism Plan: Chest pain Troponin is negative. EKG showed no ischemic changes Stress test shows small reversible ischemia Patient evaluated by cardiology who is planning cardiac catheterization. Aspirin, Lipitor NTG as needed Patient is bradycardic so we will avoid beta-blockers for now. Echocardiogram: Unremarkable. Essential hypertension Continue Coreg. GERD Continue Protonix. Hypothyroidism Continue home dose Synthroid. DVT prophylaxis Lovenox.
[2023-06-13] MEDS: carvediloL 12.5 MG TAB PO SCH ×3 (05:50→17:39)
[2023-06-13] MEDS ORDERED: LEVOTHYROXINE SOD 0.075 MG TAB PO SCH (06:30)
[2023-06-13] MEDS ORDERED: PANTOPRAZOLE 40MG TABLET PO SCH (07:30)
[2023-06-13] MEDS: INSULIN -REGULAR HUMAN 50 UNIT/0.5 ML ML SQ SCH ×3 (07:30→17:39)
[2023-06-13] MEDS: ENOXAPARIN 40 MG/0.4 ML SQ SCH (08:24)
[2023-06-13] MEDS: ASPIRIN 81 MG CHEWABLE TABLET PO SCH (08:24)
[2023-06-13] MEDS ORDERED: HEPA 1000U/500MLS 2,000 UNIT/1,000 ML BAG IV ONE (12:00)
[2023-06-13] MEDS ORDERED: LIDOCAINE 1% 20 ML MDV ONE (12:00)
[2023-06-13] MEDS ORDERED: HEPARIN 5000 UNIT/ML 1 ML VIAL ONE (12:01)
[2023-06-13] MEDS ORDERED: VERAPAMIL HCL 10 MG/4 ML VIAL IV ONE (12:01)
[2023-06-13] MEDS ORDERED: FENTANYL CITR 100 MCG/2 ML ONE (12:01)
[2023-06-13] MEDS ORDERED: MIDAZOLAM HCL 2 MG/2 ML INJ ONE (12:01)
[2023-06-13] MEDS ORDERED: HEPARIN 10,000 UNIT/10 ML VIAL IV ONE (12:01)
[2023-06-13] MEDS ORDERED: NITROGLYCERIN 100 MCG/ML SYR (for cath lab use only) IV ONE (12:02)
[2023-06-13 12:06] VITALS: TEMP 97.4
[2023-06-13] MEDS ORDERED: NA CHLORIDE 0.9% 500 ML ONE (12:14)
[2023-06-13] MEDS ORDERED: DIPHENHYDRAMINE 50 MG/ML VIAL ONE (14:04)
[2023-06-13] MEDS ORDERED: METHYLPREDNISOLONE 125 MG INJ ONE (14:04)
--- NOTE | 2023-06-13 16:26 | P.DS ---
Admission Date: 06/11/23 Discharge Date: 06/13/23 Disposition: ROUTINE DISCHARGE Discharge Condition: FAIR Reason for Admission: Epigastric pain. Brief History of Present Illness: Patient is a 62-year-old female with a past medical history significant for DM 2, hypertension, hypothyroidism, osteoarthritis who presented with complaint of epigastric pain that has been ongoing for the past 2 days. Patient rated pain as 10/10 in severity and described pain as sharp in quality. Patient reported that when she got to the ER she developed substernal chest pain rated 6/10 in severity and described as pressure in quality. Patient also complained of left lower extremity pain. Patient reported associated signs and symptoms of dizziness, nausea, vomiting, headache, palpitations, shortness of breath, diaphoresis and tremors. Initial troponin in the ED was negative. EKG showed nonspecific ST-T wave changes. Patient was hospitalized for further management. Hospital Course: Diagnosis Chest pain GERD Hypertension Hypothyroidism Patient was hospitalized and the following medical problems addressed: Chest pain Troponin is negative. EKG showed ST-T waves nonspecific for ischemia. Stress test shows small reversible ischemia Patient evaluated by cardiology Dr. Shepard and cardiac catheterization done. No significant coronary artery occlusion to warrant percutaneous intervention per Dr. Shepard. Patient placed aspirin, Lipitor Patient was on Coreg Echocardiogram: Unremarkable. Essential hypertension Continued Coreg. GERD Continued Protonix. Hypothyroidism Continued home dose Synthroid. Vital Signs/Physical Exam: Temp Pulse Resp BP Pulse Ox 97.4 F 54 15 118/61 93 06/13/23 16:00 06/13/23 16:00 06/13/23 16:00 06/13/23 16:00 06/13/23 12:00 General: Alert, In no apparent distress, Oriented x3 HEENT: Mucous membr. moist/pink Neck: JVD not distended Respiratory: Clear to auscultation bilaterally, Normal air movement Cardiovascular: No edema, Regular rate/rhythm, Normal S1 S2 Gastrointestinal: Normal bowel sounds, Soft and benign, Non-distended Musculoskeletal: No swelling, No tenderness Integumentary: No rashes, No cyanosis Neurological: Normal strength at 5/5 x4 extr Laboratory Data at Discharge: WBC 6.80 thou/uL (4.3-10.9) 06/12/23 02:52 Hgb 13.3 g/dL (12.0-15.0) 06/12/23 02:52 Hct 37.8 % (36.0-45.0) 06/12/23 02:52 Plt Count 180 thou/uL (152-406) 06/12/23 02:52 PT 11.2 SECONDS (9.5-12.5) 06/11/23 12:32 INR 1.02 06/11/23 12:32 Sodium 141 mEq/L (136-145) 06/12/23 02:52 Potassium 3.4 mEq/L (3.5-5.1) L 06/12/23 02:52 BUN 11 mg/dL (7-18) 06/12/23 02:52 Creatinine 0.84 mg/dL (0.55-1.02) 06/12/23 02:52 Glucose 111 mg/dL (74-106) H 06/12/23 02:52 Phosphorus 2.8 mg/dL (2.5-4.9) 06/11/23 20:56 Phosphorus Cancelled 06/11/23 20:56 Magnesium 2.4 mg/dL (1.6-2.4) 06/11/23 20:56 Magnesium Cancelled 06/11/23 20:56 Total Bilirubin 0.6 mg/dL (0.2-1.0) 06/11/23 12:32 AST 28 U/L (15-37) 06/11/23 12:32 ALT 27 U/L (13-56) 06/11/23 12:32 Alkaline Phosphatase 118 U/L (45-117) H 06/11/23 12:32 Triglycerides 112 mg/dL (<150) 06/12/23 02:52 Cholesterol 187 mg/dL (<200) 06/12/23 02:52 HDL Cholesterol 51 mg/dL (40-60) 06/12/23 02:52 Cholesterol/HDL Ratio 3.67 06/12/23 02:52 Lipase 37 U/L (13-75) 06/11/23 12:32 Home Medications: Levothyroxine Sodium [Unithroid] 150 mcg PO DAILY 03/01/15 Metformin HCl [Glucophage*] 500 mg PO BID 03/01/15 Acetaminophen 500 mg PO Q6HR PRN #30 tablet 10/15/16 Pantoprazole [Protonix Tab*] 40 mg PO DAILY #30 tab 10/17/16 carvediloL [Coreg*] 12.5 mg PO BID 6AM 6PM #60 tab 10/17/16 Aspirin Chewable [Aspirin Chewable*] 81 mg PO DAILY #30 tab.chew 06/13/23 New Medications: Aspirin Chewable [Aspirin Chewable*] 81 mg PO DAILY #30 tab.chew Physician Discharge Instructions: Please do not take your metformin because of the contrast used during the cardiac catheterization. You can resume taking your metformin on 06/16/2023. Diet: ADA Activity: Ad wilfredo Followup: NONE,NONE [Primary Care Provider] - Time spent managing pt's care (in minutes): 28
--- NOTE | 2023-06-13 17:10 | PN ---
Date of Progress Note: 06/13/2023 Subjective: Seen by bedside. Doing clinically well. Review of Systems: No chest pain, shortness of breath, orthopnea, or cough. No nausea, vomiting, or diarrhea. All othe r systems were reviewed, they were negative. Physical Examination: Vital Signs: Reviewed. Head and Neck: Pupils are equal, reactive to light. Intact eye movements. No JVD. No cervical lym phadenopathy. Neck is supple. Thyroid is not enlarged. Lungs: Clear to auscultation bilaterally. No rhonchi, wheezing, or crackles. No accessory muscle u se. Heart: Regular rate and rhythm. No extra sounds. Abdomen: Soft, nontender. Bowel sounds positive. No organomegaly. No masses or hernia. No rigidi ty or rebound. Extremities: No edema, clubbing, or cyanosis. Intact pulses. Skin: No rash. No nodule. Neurologic: Alert, awake, oriented x3. No acute focal deficits appreciated. Investigation: Labs reviewed. Assessment And Recommendations: 1.Chest pain with abnormal stress test, status post coronary angiogram. She does not have any signi ficant coronary artery disease. This is noncardiac, and no further cardiac workup is needed. Consuelo lam can be released to follow up with her primary care physician as an outpatient. 2.Hypertension. Blood pressure is controlled. Continue current therapy. Cardiology will sign off from the case. /OLLIEL Voice ID: [id number] Report ID: [id number]
[2023-06-13 17:41] VITALS: BP 124/67
--- NOTE | 2023-06-13 17:55 | OP ---
Date of Procedure: 06/13/2023 Surgeon: FRANTZ MCKEON Procedures Performed: 1.Selective coronary angiogram. 2.Left heart catheterization. Indication: Chest pain with positive stress test. Access: Right radial artery 6-Ethiopian closed with TR band. Complications: None. Bleeding: Less than 20 mL. Description Of Procedure: After risks, benefits, alternatives were explained, patient agreed to proc eed and signed informed consent. Patient was brought into cardiac catheterization laboratory, preppe d and draped in the usual sterile fashion. Then, I accessed right radial artery using pediatric micr opuncture kit, placed 6-Ethiopian Slender sheath and took 5-Ethiopian Fenton 4.0 catheter into aortic root, over a J-wire, engaged left main and then right coronary artery, took standard views and the catheter was pushed over the wire into the LV, measured the LVEDP and pullback did not record any gradient an d then removed the catheter and the sheath, placed TR band with good hemostasis. Findings: 1.Left main; large and normal. 2.LAD; very large and normal entirely. Maybe after the diagonal takeoff, there is 10% or 20% stenos is or a natural decrease in the lumen due to the takeoff of the diagonal, likely it is a normal findi ng. 3.Left circumflex is very large and dominant and normal. 4.RCA; small, nondominant and normal. 5.Normal LVEDP. Conclusion: 1.No significant coronary artery disease. 2.Normal LVEDP. Recommendation: Medical management. /FRANCE Voice ID: [id number] Report ID: [id number]
[2023-06-13 18:29] VITALS: O2SAT 93
== END 2023-06-13 19:00 | disposition home or self-care (01) ==
LOC: ER 12:18 → ERHOLD 16:01 → 4TH 19:55
PROVIDERS: ADMIT Internal Medicine; ATTEND Internal Medicine
DX: R07.89 Other chest pain (principal); R94.39 Abnormal result of other cardiovascular function study; I10 Essential (primary) hypertension; R00.1 Bradycardia, unspecified; K21.9 Gastro-esophageal reflux disease without esophagitis; E03.9 Hypothyroidism, unspecified; R10.9 Unspecified abdominal pain; E87.6 Hypokalemia; M79.605 Pain in left leg; R51.9 Headache, unspecified; R11.2 Nausea with vomiting, unspecified; E11.9 Type 2 diabetes mellitus without complications; R68.83 Chills (without fever); M19.90 Unspecified osteoarthritis, unspecified site; Z79.4 Long term (current) use of insulin; Z79.84 Long term (current) use of oral hypoglycemic drugs; Z79.899 Other long term (current) drug therapy; Z91.041 Radiographic dye allergy status; Z90.49 Acquired absence of other specified parts of digestive tract; Z90.710 Acquired absence of both cervix and uterus; Z20.822 Contact with and (suspected) exposure to COVID-19
CPT/HCPCS: 93005; 93017; 93306; 85025 ×2; 81001; 80048 ×2; 36415 ×2; 83735 ×2; 84100; 85610; 80061; 82947 ×8; 85379; 80076; 84443; 84484 ×3; 84439; 83690; 83880; 87804 ×2; 70450; 71250; 74176; 71045; 93458; 76937; 93971; 78452; 96375; 96374; 99285; 87811; C1893; Q9966; J2550; J1815; J1644; J2785; J0360; J2001; J1200; J3010 ×2; J2930; J2405; G0378 ×7; J7040; J7030; A9500; J1650; J2250